=== PATIENT | female | born 1965 | race Caucasian/White ===

== ENCOUNTER 2021-12-23 08:34 | Day surgery (SDC) | payer OTHER, SELFPAY ==
[~2021-12-23] VITALS: Ht 172.7 cm; Wt 57.6 kg
[2021-12-23] MEDS ORDERED: LIDOCAINE 2% 100 MG/5 ML UJET TP ONE (11:19)
[2021-12-23] MEDS ORDERED: fentaNYL citrate 0.05 MG/ML VIAL ONE (11:19)
[2021-12-23] MEDS ORDERED: MIDAZOLAM 5 MG/5 ML VIAL ONE (11:19)
[2021-12-23] MEDS ORDERED: diphenhydrAMINE 50 MG/ML VIAL ONE (11:19)
[2021-12-23] MEDS ORDERED: fentaNYL citrate 0.05 MG/ML VIAL IVP ONE (13:45)
[2021-12-23] MEDS ORDERED: MIDAZOLAM 2 MG/2 ML VIAL IVP ONE (13:45)
== END 2021-12-23 13:07 | disposition home or self-care (01) ==
LOC: MMU 08:34 → MDS 08:34
PROVIDERS: ATTEND Internal Medicine Gastroenterology
DX: Z12.11 Encounter for screening for malignant neoplasm of colon (principal); K57.30 Diverticulosis of large intestine without perforation or abscess without bleeding; E78.5 Hyperlipidemia, unspecified; Z20.822 Contact with and (suspected) exposure to COVID-19
CPT/HCPCS: 45378; 87426; J2250; J3010; G0378; J1200